=== PATIENT | male | born 1970 | race Hispanic/Latino ===

== ENCOUNTER 2019-12-06 22:12 | Emergency (ER) | payer OTHER ==
[~2019-12-06] VITALS: Ht 175.3 cm; Wt 90.7 kg
[2019-12-06] MEDS ORDERED: ASPIRIN 81 MG CHEW TAB PO STA (22:27)
--- NOTE | 2019-12-06 22:43 | Emergency Department Note ---
History of Present Illnes History of Present Illness Chief Complaint: is a 49-year-old male for the last 2 weeks is is complaining of intermittent chest pressure associated with shortness of breath History of Present Illness This is a 49 year old male . Historian: Patient (at an attack just prior to coming while eating dinner at a restaurant) Arrival Mode: Car Additional Treatment FISCAL SPECIALIST: none Onset (how long ago): week(s) (2 weeks) Location: substernal Quality: pressure-like patient had an attack just prior to coming to the hospital Radiation: non-radiation Severity: moderate Onset quality: sudden Duration (how long): hour(s) (patient gets these attacks at most a last a few minutes) Timing of current episode: intermittent Progression: unchanged Chronicity: new Relieving factors: none Exacerbating factors: none Associated symptoms: denies other symptoms, chest pain (as above), shortness of breath (in times associated with orthopnea patient states he wakes up in the m iddle of night short of breath and is relieved with walking around) Treatments prior to arrival: none Past Medical/Family History Physician Review I have reviewed the patient's past medical and family history. Any updates have been documented here. Past Medical History Recent Fever: No Clinical Suspicion of Infectio: No New/Unexplained Change in Ment: No Past Medical History: None Past Surgical History: None Social History Smoking Cessation: Never Smoker Counseling Performed: No Alcohol Use: Social Any Illegal Drug Use: No TB Exposure/Symptoms: No Physically hurt or threatened: No Other Any Pre-Existing Lines (PICC,: No Is patient up to date on immun: No Review of Systems Review of Systems Constitutional: no symptoms EENTM: no symptoms Cardiovascular: as per HPI Respiratory: as per HPI Gastrointestinal: no symptoms Genitourinary: no symptoms Musculoskeletal: no symptoms Neurological: no symptoms Psychological: no symptoms Endocrine: no symptoms Hematological/Lymphatic: no symptoms Review of other systems All other systems reviewed and negative. Physical Exam Related Data Allergies: Coded Allergies: No Known Allergies (Unverified , 01/10/13) Vital signs reviewed: Yes Physical Exam CONSTITUTIONAL Constitutional: well-developed, well-nourished, other (no acute distress mildly anxious speaking without difficulty. In full sentences) HENT HENT: normocephalic, atraumatic, oropharynx clear/moist, oropharynx normal, nose normal EYES Eyes: PERRL, conjunctivae normal, EOM normal, lids normal NECK Neck: ROM normal, supple, other (no JVD was noted) PULMONARY Pulmonary: effort normal, breath sounds normal CARDIOVASCULAR Cardiovascular: regular rhythm, heart sounds normal, intact distal pulses, capillary refill normal, normal rate GASTROINTESTINAL Abdominal: soft, nontender, bowel sounds normal GENITOURINARY Genitourinary: exam deferred SKIN Skin: warm, dry MUSCULOSKELETAL Musculoskeletal: ROM normal NEUROLOGICAL Neurological: alert, oriented x 3, DTRs normal, no gross motor or sensory deficits PSYCHOLOGICAL Psychological: mood/affect normal, behavior normal, thought content normal, judgement normal Results Laboratory Laboratory D-dimer is less than 100 which is within normal limits BNP is less than 5 cardiac markers are negative CBC is within normal limits liver function tests are within normal limits basic metabolic panel was normal Imaging Imaging results reviewed: Yes Impressions Chest x-ray is within normal limits Diagnostics Tests Diagnostic test(s) reviewed: Yes Diagnostic comments ekg nsr rate 68 ic RBBB noted otherwise the EKG wnl interpreted by me Critical Care Time Subsequent provider I assumed direction of critical care for this patient from another provider of my specialty. Assessment & Plan Reassessment Reassessment time: 22:59 Reassessment pt ambulates without sob or chest pressure Assessment & Plan Final Impression: (1) PANIC DISORDER [EPISODIC PAROXYSMAL ANXIETY] (2) Atypical chest pain Assessment & Plan Patient will be sent home on Ativan 0.25 mg by mouth 3 times a day when necessary for shortness of breath patient also advised to take one baby aspirin daily and to follow his family doctor in 48 hours return to ER for further concern Depart Disposition: HOME, SELF-detention Meds Active Scripts Lorazepam* (ATIVAN*) 0.5 Mg Tablet, 0.25 MG PO TID PRN for ANXIETY for 4 Days, #12 TAB 0 Refills Prov:CARLOS TAO MD 12/06/19 Medications in the ED Aspirin 81 mg ONCE STAT PO ; Start 12/06/19 at 22:27; Stop 12/06/19 at 22:28; Status UNV CARLOS TAO MD Dec 06, 2019 22:43
[2019-12-06] MEDS ORDERED: ASPIRIN 81 MG CHEW TAB ONE (22:56)
--- NOTE | 2019-12-06 23:22 | Diagnostic Imaging Report ---
EXAMINATION: CXR 2 VIEW - HOPD INDICATION: Chest pain, shortness of breath ^chest pain ^[id number] ^[id number] COMPARISON: None FINDINGS: PA and lateral views TUBES and LINES: None. LUNGS: Lungs are well inflated. There is no evidence of pneumonia or pulmonary edema. PLEURA: No pleural effusion or pneumothorax. HEART AND MEDIASTINUM: The cardiomediastinal silhouette is unremarkable.. BONES AND SOFT TISSUES: No focal osseous lesions. Soft tissues are unremarkable. UPPER ABDOMEN: Unremarkable. IMPRESSION: No acute thoracic abnormality. Signed by: Dr. Collette Braun MD on 12/06/2019 11:18 PM
[2019-12-06] MEDS ORDERED: ATIVAN0.5 MG PO (23:44)
[2019-12-06 23:55] VITALS: BP 112/68
== END 2019-12-06 23:55 | disposition home or self-care (01) ==
LOC: FSED 22:12
DX: R07.89 Other chest pain (principal); R06.02 Shortness of breath; F41.0 Panic disorder [episodic paroxysmal anxiety]
CPT/HCPCS: 71046; 99284